=== PATIENT | male | born 1950 | race Caucasian/White ===

== ENCOUNTER 2021-02-11 09:20 | Emergency (ER) | payer OTHER ==
[~2021-02-11] VITALS: Ht 167.6 cm; Wt 68.0 kg
--- NOTE | 2021-02-11 09:45 | NUR ---
[facility] [employer] FOR MEDICAL CLEARANCE BECAUSE HE IS REFUSING TO GO TO COURT CHRONIC BACK AND NECK PAIN. NO APPARENT TRAUMA NOTED. WILL CONTINUE TO MONITOR THE PATIENT.
[2021-02-11] MEDS ORDERED: HYDR-3972 PO (10:37)
[2021-02-11] MEDS ORDERED: AMLO10TA4 PO (10:37)
[2021-02-11] MEDS ORDERED: TAMS-12 PO (10:37)
[2021-02-11] MEDS ORDERED: TAMSULOSIN 0.4 MG CAP.SR.24H ONE (10:41)
[2021-02-11] MEDS ORDERED: HYDROCODONE/APAP 10/325MG TABLET ONE (10:41)
[2021-02-11] MEDS ORDERED: AMLODIPINE BESYLATE 10 MG TABLET ONE (10:41)
[2021-02-11] MEDS: HYDROCODONE/APAP 5/325MG TABLET PO ONE (10:46)
[2021-02-11] MEDS: TAMSULOSIN 0.4 MG CAP.SR.24H PO ONE (10:46)
[2021-02-11] MEDS: AMLODIPINE BESYLATE 5 MG TABLET PO ONE (10:46)
[2021-02-11] MEDS: AMLODIPINE BESYLATE 10 MG TABLET PO SCH (11:00)
[2021-02-11] MEDS: HYDROCODONE/APAP 5/325MG TABLET PO SCH (11:00)
[2021-02-11] MEDS: TAMSULOSIN 0.4 MG CAP.SR.24H PO SCH (11:00)
--- NOTE | 2021-02-11 11:15 | NUR ---
Patient discharged in stable condition with [employer]. Written and verbal after care instructions given. Patient and [employer] verbalize understanding of instruction.
[2021-02-11 11:16] VITALS: BP 141/85
== END 2021-02-11 11:17 ==
LOC: ER 09:24
DX: I10 Essential (primary) hypertension (principal); G89.29 Other chronic pain; M54.2 Cervicalgia; M54.9 Dorsalgia, unspecified; N40.0 Benign prostatic hyperplasia without lower urinary tract symptoms